=== PATIENT | male | born 1945 | race Caucasian/White ===

== ENCOUNTER 2017-10-16 08:41 | Outpatient (CLI) | payer MEDICARE | END 2017-10-16 08:42 | disposition home or self-care (01) | LOC: BICRAD 08:41 | PROVIDERS: ATTEND Family Medicine | DX: M25.551 Pain in right hip (principal); M16.11 Unilateral primary osteoarthritis, right hip ==

== ENCOUNTER 2024-03-29 08:41 | Day surgery (SDC) | payer MEDICARE ==
[2024-03-28 15:38] VITALS: BMI 31.7
[~2024-03-29 08:41] MED LIST: EPINEPHrine 0.3 MG in Ophthalmic Irrigation Solution 500 ML IRR SCH
[2024-03-29] MEDS ORDERED: PHENYLephrine 2.5% Ophth Soln 15 ml Bottle ONE (10:23)
[2024-03-29] MEDS ORDERED: Cyclopentolate 1% Opth Drop 2 ML BOT ONE (10:23)
[2024-03-29] MEDS ORDERED: fentaNYL 50 mcg/mL 1 mL Vial ONE (11:00)
[2024-03-29] MEDS ORDERED: PROPOFOL 0 ML ONE (11:00)
[2024-03-29] MEDS ORDERED: Lidocaine 1% PF 5 ML VIAL ONE (11:00)
== END 2024-03-29 13:17 | disposition home or self-care (01) ==
LOC: SDC 08:41
PROVIDERS: ATTEND Ophthalmology Retina Specialist
PROC: 08T43ZZ Resection of Right Vitreous, Percutaneous Approach (ICD-10-PCS; principal; 2024-03-29)
PROC: 08NE3ZZ Release Right Retina, Percutaneous Approach (ICD-10-PCS; 2024-03-29)
DX: H33.021 Retinal detachment with multiple breaks, right eye (principal); Z79.82 Long term (current) use of aspirin; Z79.899 Other long term (current) drug therapy
CPT/HCPCS: 67041; J0171; J3010; 67025; J2704